=== PATIENT | female | born 1980 | race Caucasian/White ===

== ENCOUNTER → 2016-04-30 | Outpatient (CLI) | payer OTHER ==
[~2016-04-30] MED LIST: NAPROXEN PO; NO MEDICATIONS; RANITIDINE HCL150 M1 PO; ZOLOFT PO
--- NOTE | ~2016-04-30 | EKG ---
PATIENT: SHAR STANLEY UNIT #: [id number] Ventricular Rate: 70 BPM Atrial Rate: 70 BPM P-R Interval: 168 ms QRS Duration: 78 ms Q-T Interval: 418 ms QTC Calculation(Bezet): 451 ms P Hagan: 3 degrees Calculated R Hagan: 54 degrees Calculated T Hagan: 25 degrees Diagnosis Line: Normal sinus rhythm Diagnosis Line: Poor R wave progression questionable lead position Diagnosis Line: or body habitus Otherwise normal ECG Diagnosis Line: When compared with ECG of 23-MAY-2010 15:44, Diagnosis Line: Vent. rate has decreased BY 73 BPM Diagnosis Line: Confirmed by ABDIRIZAK NASCIMENTO MD ([id number]) on 04/30/2016 Diagnosis Line: 4:46:06 PM INTERPRETING MD: AZAM WILSON
--- NOTE | ~2016-04-30 | CR97 ---
[facility] A Service of [facility] RADIOLOGY TEXT RESULTS PATIENT: SHAR STANLEY LOCATION: [facility] : 80 UNIT #: [id number] AGE: [address]: Barry Hatfield MD SEX: F ORDER DR: [id number] [place] [id number] [facility]. [place], [place] [address] [id number] O MR#: [id number] Acc #: [id number] NAME: SHAR STANLEY : 1980 SEX: F STUDY DATE/TIME: 04/30/2016 10:38 UNIT: [facility] ROOM: STUDY DESCRIPTION: CR Esophagram Attending Physician: Barry Hatfield M.D. Ordering Physician: Barry Hatfield M.D. Primary Care Physician: Jocelyn Howard M.D. MEDICAL IMAGING REPORT This report is preliminary unless electronic signature is present EXAM Esophagram 04/30/2016 INDICATION 36-year-old female undergoing preop evaluation for lap-band placement and possible paraesophageal hernia repair. History of appendectomy and tubal ligation. Symptoms began this morning. TECHNIQUE Spot fluoroscopic views of the esophagus were obtained in various projections after the patient ingested gas crystals and thick and thin barium on 04/30/2016. We have no comparison studies. FINDINGS Notes indicate 0.5 minutes of fluoroscopy time was used in the case. 65 spot fluoroscopic views from the procedure were saved to the [employer] system. The esophagus demonstrates an unremarkable primary stripping wave. Prominent cricopharyngeal muscle incidentally noted. There is no focal mass or mucosal abnormality. No persistent stricture. No evidence of hiatal hernia. IMPRESSION 1. Essentially negative esophagram. 2. Notes indicate about 0.8 minutes of fluoroscopy time was used in the case. 65 images from the procedure were saved to the [employer] system. Dictated by... Mikey Yu M.D. THIS IS AN ELECTRONICALLY VERIFIED REPORT [facility] A Service of [facility] RADIOLOGY TEXT RESULTS PATIENT: SHAR STANLEY LOCATION: [facility] : 80 UNIT #: [id number] AGE: [address]: Barry Hatfield MD SEX: F ORDER DR: Mikey Yu M.D. at 04/30/2016 3:41 PM Veronika TD: 04/30/2016 15:36 JOB #: [id number] MEDICAL IMAGING REPORT COPY
--- NOTE | ~2016-04-30 | CR63 ---
[facility] A Service of [facility] & [facility] RADIOLOGY TEXT RESULTS PATIENT: SHAR STANLEY LOCATION: [facility] : 80 UNIT #: [id number] AGE: [address]: Barry Hatfield MD SEX: F ORDER DR: [id number] [facility] [address] [place], [place] [address] [id number] O MR#: [id number] Acc #: [id number] NAME: SHAR STANLEY : 1980 SEX: F STUDY DATE/TIME: 04/30/2016 9:17 UNIT: [facility] ROOM: STUDY DESCRIPTION: CR Chest 2 View Attending Physician: Barry Hatfield M.D. Ordering Physician: Barry Hatfield M.D. Primary Care Physician: Jocelyn Howard M.D. MEDICAL IMAGING REPORT This report is preliminary unless electronic signature is present EXAM Chest PA and lateral 04/30/2016 COMPARISON EXAMINATION 05/23/2010 HISTORY SUPPLIED Preop assessment, lap-band surgery. FINDINGS PA and lateral views are obtained. The cardiovascular configuration is normal and the lungs are clear. CONCLUSION Normal chest. Dictated by... Barry Jose M.D. THIS IS AN ELECTRONICALLY VERIFIED REPORT Barry Jose M.D. at 04/30/2016 4:45 PM JARROD/ese TD: 04/30/2016 13:38 JOB #: [id number] MEDICAL IMAGING REPORT COPY
[2016-04-30 10:34] LABS: BASOPHIL% 0.5 % (0-2.5); EOSINOPHIL# 0.2 X10e3 (0-0.7); EOSINOPHIL% 2.2 % (0.0-7.0); HEMATOCRIT 44.4 % (35.0-45.0); HEMOGLOBIN 14.5 gm/dL (12.0-16.0); LYMPHOCYTE# 2.4 X10e3 (1.0-3.5); LYMPHOCYTE% 27.7 % (17.0-45.0); MEAN CELL VOLUME 84.2 FL (83-96); MEAN CORPUSCULAR HEMOGLOBIN 27.6 PG (28-34); MEAN CORPUSCULAR HGB CONC 32.7 g/dL (30-36); MEAN PLATELET VOLUME 9.3 FL (6.5-11.5); MONOCYTE# 0.9 X10e3 (0-1.0); NEUTROPHIL% 58.6 % (40-75); PLATELET COUNT 236 X10e3 (140-420); RED BLOOD COUNT 5.27 X10e (3.90-5.30); RED CELL DISTRIBUTION WIDTH 14.4 % (11.0-15.5); WHITE BLOOD COUNT 8.5 X10e3 (4.0-10.5)
[2016-04-30 10:36] LABS: DIFF IND NO
[2016-04-30 11:20] LABS: ALBUMIN SERUM 3.7 g/dL (3.5-5.0); ALKALINE PHOSPHATASE 58 U/L (32-92); ALT (SGPT) 21 U/L (10-40); AST (SGOT) 15 U/L (10-42); BILIRUBIN,TOTAL 0.5 mg/dL (0.2-2.0); BLOOD UREA NITROGEN 12 mg/dL (9-23); CALCIUM SERUM 8.8 mg/dL (8.4-10.2); CARBON DIOXIDE 25 mmol/L (22-31); CHLORIDE 105 mmol/L (100-111); CREATININE SERUM 0.6 mg/dL (0.6-1.4); GLOM FILT RATE Estimated ABOVE60 mL/min (>60); GLUCOSE FASTING 96 mg/dL (70-110); POTASSIUM 4.3 mmol/L (3.5-5.1); PROTEIN TOTAL SERUM 6.6 g/dL (6.0-8.3); SODIUM 138 mmol/L (135-145)
[2016-04-30 12:26] LABS: CHOLESTEROL 167 mg/dL (0-200); HDL CHOLESTEROL 33 mg/dL (35-95); LDL CHOLESTEROL 122 mg/dL (-130); LDL/HDL RATIO 4 RATIO (0-4); TRIGLYCERIDES 60 mg/dL (10-160)
== END | disposition home or self-care (01) ==
LOC: CRAD 08:10
PROVIDERS: Surgery
DX: Z01.818 Encounter for other preprocedural examination (principal)
CPT/HCPCS: 36415; 71020; 74220; 80053; 80061; 84443; 85025; 93005

== ENCOUNTER → 2016-05-12 | Day surgery (SDC) | payer OTHER ==
[~2016-05-12] MED LIST changes: +APAP325 M1 PO; +LORTAB 7.5-3251 EACH PO; +ZYVOX600 MG PO
--- NOTE | ~2016-05-12 | CR7 ---
[facility] A Service of [facility] RADIOLOGY TEXT RESULTS PATIENT: SHAR STANLEY LOCATION: [facility] : 80 UNIT #: [id number] AGE: [address]: Barry Hatfield MD SEX: F ORDER DR: [id number] [facility] [address] [place], [place] [address] [id number] O MR#: [id number] Acc #: [id number] NAME: SHAR STANLEY : 1980 SEX: F STUDY DATE/TIME: 05/12/2016 11:18 UNIT: [facility] ROOM: STUDY DESCRIPTION: CR Abdomen Single AP View Attending Physician: Barry Hatfield M.D. Ordering Physician: Barry Hatfield M.D. Primary Care Physician: Jocelyn Howard M.D. MEDICAL IMAGING REPORT This report is preliminary unless electronic signature is present EXAM Abdomen, one view, 05/12/2016, 1118 hours. CLINICAL HISTORY 36-year-old woman status post lap-band placement today for morbid obesity. COMPARISON Esophagram, 04/30/2016. FINDINGS Single supine view of the abdomen is provided. The left flank and the pelvis are excluded from the film. There is a new LAP-BAND projecting to the left of T11 oriented at 53 degrees from vertical. Radiopaque tubing courses inferiorly to a port overlying the left iliac crests. Bowel gas pattern is unremarkable. IMPRESSION Limited film confirms presence of a LAP-BAND to the left of T11 oriented at 53 degrees from vertical. Radiopaque tubing courses inferiorly to a port overlying the left iliac wing. Bowel gas pattern is unremarkable. Dictated by... Estrella Day M.D. THIS IS AN ELECTRONICALLY VERIFIED REPORT Estrella Day M.D. at 05/12/2016 6:58 PM HALI/he TD: 05/12/2016 15:29 JOB #: [id number] [facility] A Service of [facility] RADIOLOGY TEXT RESULTS PATIENT: SHAR STANLEY LOCATION: [facility] #: [id number] : [birth year] UNIT #: [id number] AGE: [address]: Barry Hatfield MD SEX: F ORDER DR: MEDICAL IMAGING REPORT COPY
--- NOTE | ~2016-05-12 | OR ---
Unit #: [id number] #: [id number] Patient: SHAR STANLEY [id number] [address] [address] [id number] O MR#: [id number] NAME: SHAR STANLEY ROOM: Date of Procedure: 05/12/2016 Admission Date: 05/12/2016 Surgeon: Barry Hatfield M.D. : 1980 Attending Physician: Barry Hatfield M.D. Primary Care Physician: Jocelyn Howard M.D. OPERATIVE REPORT PREOPERATIVE DIAGNOSIS Chronic morbid obesity with BMI of 42. POSTOPERATIVE DIAGNOSES 1. Chronic morbid obesity with BMI of 42. 2. Paraesophageal hiatal hernia. PROCEDURE PERFORMED 1. Laparoscopic adjustable gastric band. 2. Laparoscopic paraesophageal hiatal hernia repair. CNC MACHINIST 2ND SHIFT Candelario Hayward M.D. ANESTHESIA General endotracheal anesthesia. ESTIMATED BLOOD LOSS Minimal. IV FLUIDS 800 crystalloid. COMPLICATIONS None. INDICATIONS FOR PROCEDURE The patient is a 36-year-old with chronic morbid obesity. DESCRIPTION OF PROCEDURE The patient was taken to the operating room and placed in supine position. General anesthesia was induced. The abdomen was prepped and draped. A 3-cm incision was then made left of the midline. A 10-mm Visiport was then placed intraabdominal under direct vision. The abdomen was insufflated to 15 mmHg with CO2. The patient was then placed in a steep reversed Trendelenburg. General inspection of the abdomen revealed what appeared to be a paraesophageal hernia. This was identified with a defect at the diaphragm using anterior palpation with the instrument. We then made a small incision in the subxiphoid region. A Jennifer liver retractor was then placed intraabdominal and used to retract the left lobe of the liver upward to further expose the paraesophageal hernia and GE junction. I then placed a 5-mm port in the right upper quadrant, a 10-mm Unit #: [id number] #: [id number] Patient: SHAR STANLEY port in the left upper quadrant, and another 5-mm port in the left lower quadrant. The stomach was retracted medial and downward. Upon retracting the stomach, we took down the paraesophageal ligament, exposing the right and left antonio at the paraesophageal hernia. Any hernia sac was reduced. We then repaired the paraesophageal hernia using interrupted #0 Ethibond sutures in a jikson-bd-touht type fashion. This formed a snug repair to the anterior esophagus. We then retracted the stomach medially and further exposed the angle of His using Bovie electrocautery. The stomach was then retracted laterally. We then took down the hepatogastric ligament with Bovie electrocautery. This exposed the right antonio. Using blunt dissection, I created a retrogastric tunnel from this point to the angle of His. The band was then placed intraabdominal through the 10-mm port site. This was then brought through the retrogastric tunnel in a pars flaccida technique. The band was then closed anteriorly to form a 20-mL to 25-mL anterior gastric pouch. The fundus was then secured to the anterior pouch to prevent movement around the stomach using two interrupted #0 Ethibond sutures. A third suture was then used as a gathering stitch from the lesser curve to the anterior stomach, gathering and imbricating the remaining fundus of the stomach. The tubing was then brought out through the midline 10-mm port site. All ports and the Jennifer liver retractor were removed under direct vision with no evidence of abdominal hemorrhage. A polypropylene mesh was then secured to the posterior face of the laparoscopic band port. This was secured using #0 Ethibond suture. This was then cut to shape. The port was then connected to the tubing and placed into a subcutaneous pocket just anterior to the rectus sheath. Its position was then confirmed. All tubing was then placed intraabdominal. The wounds were then closed with interrupted 4-0 Vicryl. The patient tolerated the procedure well and was sent to the recovery room in good condition. Dictated by... Amanda Silva/laura TD: 05/13/2016 02:34 JOB #: [id number] OPERATIVE REPORT X Barry Hatfield MD PROCEDURE OPERATIVE NOTE
== END | disposition home or self-care (01) ==
LOC: CSUR 07:53
DX: E66.01 Morbid (severe) obesity due to excess calories (principal); K44.9 Diaphragmatic hernia without obstruction or gangrene; K21.9 Gastro-esophageal reflux disease without esophagitis; E03.9 Hypothyroidism, unspecified; Z68.41 Body mass index [BMI] 40.0-44.9, adult; Z90.49 Acquired absence of other specified parts of digestive tract; Z90.89 Acquired absence of other organs; Z98.890 Other specified postprocedural states; Z88.0 Allergy status to penicillin; Z88.1 Allergy status to other antibiotic agents; Z88.2 Allergy status to sulfonamides; Z88.8 Allergy status to other drugs, medicaments and biological substances; Z72.4 Inappropriate diet and eating habits; Z79.899 Other long term (current) drug therapy; Z98.51 Tubal ligation status; Z82.61 Family history of arthritis; Z82.5 Family history of asthma and other chronic lower respiratory diseases; Z83.49 Family history of other endocrine, nutritional and metabolic diseases; Z81.1 Family history of alcohol abuse and dependence; Z87.891 Personal history of nicotine dependence
CPT/HCPCS: 74000; 84703; C1781; J0330; J0461; J1650; J1885; J2250; J2405; J2710; J3010; J3370

== ENCOUNTER → 2016-11-04 | Outpatient (CLI) | payer OTHER ==
--- NOTE | ~2016-11-04 | CR97 ---
[facility] A Service of [facility] & [facility] RADIOLOGY TEXT RESULTS PATIENT: SHAR STANLEY LOCATION: [facility] : 80 UNIT #: [id number] AGE: [address]: Barry Hatfield MD SEX: F ORDER DR: [id number] [facility] [address] [place], [place] [address] [id number] O MR#: [id number] Acc #: [id number] NAME: SHAR STANLEY : 1980 SEX: F STUDY DATE/TIME: 11/04/2016 10:07 UNIT: [facility] ROOM: STUDY DESCRIPTION: CR Esophagram Attending Physician: Barry Hatfield M.D. Referring Physician: Barry Hatfield M.D. Ordering Physician: Barry Hatfield M.D. Primary Care Physician: Primary Care Physician No MEDICAL IMAGING REPORT This report is preliminary unless electronic signature is present EXAM Single contrast barium esophagram INDICATIONS This patient had a history of a laparoscopic gastric band placed in April 2016. She reports dysphagia, nausea and vomiting for 22 days. TECHNIQUE Patient was administered thin barium and multiple fluoroscopic images were obtained. FINDINGS Initial stratigrapher image was obtained, the phi angle on the band was approximately 49.2 degrees which is not significantly changed from the patient's immediate postoperative examination. She does appear to have some gaseous distension of bowel particularly some loops of colon within the left upper quadrant, this is incompletely assessed on this fluoroscopic study. Thoracic esophagus appeared to be of normal caliber with no evidence of stricture or mass lesion. Esophageal motility is within normal limits. There is prompt emptying of contrast material into the stomach. Pouch appeared unremarkable. She was noted to have some pooling of contrast within the distal stomach without progression into the proximal small bowel. Total fluoroscopy time was 1.2 minutes. A total of 13 fluoroscopic images were obtained. IMPRESSION 1. No evidence of laparoscopic gastric band slippage. Phi angle appears unchanged when compared to the immediate postoperative study. Contrast passes easily into the small bowel, and there is no dilatation of the pouch. 2. I do question if there is some gaseous distension of the bowel. Some nonspecific ileus is not excluded given symptomatology. Patient may benefit from CT of the abdomen and pelvis with oral and STS. [facility] A Service of [facility] & [facility] RADIOLOGY TEXT RESULTS PATIENT: SHAR STANLEY [id number] [birth year] UNIT #: [id number] AGE: [address]: Barry Hatfield MD SEX: F ORDER DR: IV contrast. Dictated by... Blanca Starr M.D. THIS IS AN ELECTRONICALLY VERIFIED REPORT Blanca Starr M.D. at 11/05/2016 6:00 PM AFF/to TD: 11/04/2016 16:18 JOB #: [id number] MEDICAL IMAGING REPORT Page 1 of 1 COPY
== END | disposition home or self-care (01) ==
LOC: CRAD 08:30
DX: R13.10 Dysphagia, unspecified (principal); R11.10 Vomiting, unspecified
CPT/HCPCS: 74220

== ENCOUNTER → 2016-11-08 | Day surgery (SDC) | payer OTHER ==
--- NOTE | ~2016-11-08 | OR ---
Unit #: [id number] #: [id number] Patient: SHAR STANLEY [id number] [address] [address] [id number] O MR#: [id number] NAME: SHAR STANLEY ROOM: Date of Procedure: 11/08/2016 Admission Date: 11/08/2016 Surgeon: Barry Hatfield M.D. : 1980 Attending Physician: Barry Hatfield M.D. Primary Care Physician: Primary Care Physician No OPERATIVE REPORT POSTOPERATIVE DIAGNOSIS Dysphagia. POSTOPERATIVE DIAGNOSIS Mild gastritis. PROCEDURES PERFORMED Esophagogastroduodenoscopy with biopsy for Helicobacter pylori. ANESTHESIA IV sedation. COMPLICATIONS None. INDICATIONS FOR PROCEDURE The patient is a 36-year-old lady, status post lap band, who has had persistent dysphagia despite having no fluid in her band. She presents for endoscopic evaluation. DESCRIPTION OF PROCEDURE The patient was taken to the operating theater and placed in left lateral decubitus position. IV sedation was initiated. EGD scope was passed under direct vision into the esophagus. Esophagus was grossly normal. The GE junction was widely patent through the band. I saw no esophagitis. There was some mild gastritis. Duodenum was normal. A biopsy was taken for H pylori. I retroflexed the scope and did not see any abnormality of gastric cardia. The patient tolerated the procedure well and sent to recovery room in good condition. Dictated by... Amanda Silva/laura TD: 11/08/2016 14:27 JOB #: [id number] Unit #: [id number] #: [id number] Patient: SHAR STANLEY OPERATIVE REPORT Page 1 of 1 X Barry Hatfield MD X PROCEDURE OPERATIVE NOTE
== END | disposition home or self-care (01) ==
LOC: COPS 13:00
DX: K29.70 Gastritis, unspecified, without bleeding (principal); K21.9 Gastro-esophageal reflux disease without esophagitis; E66.01 Morbid (severe) obesity due to excess calories; E03.9 Hypothyroidism, unspecified; Z68.29 Body mass index [BMI] 29.0-29.9, adult; Z88.0 Allergy status to penicillin; Z88.1 Allergy status to other antibiotic agents; Z88.2 Allergy status to sulfonamides; Z88.8 Allergy status to other drugs, medicaments and biological substances; Z98.84 Bariatric surgery status; Z98.890 Other specified postprocedural states
CPT/HCPCS: 87077; J2250